=== PATIENT | male | born 1960 | race Caucasian/White ===

== ENCOUNTER 2020-08-25 16:36 | Emergency (ER) | payer OTHER ==
[~2020-08-25] VITALS: Ht 175.3 cm; Wt 92.1 kg
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
--- NOTE | 2020-08-25 17:46 | NUR ---
Patient discharged to home in stable condition. Written and verbal after care instructions given. Patient verbalizes understanding of instruction. Pt ambulatory with a steady gait
--- NOTE | 2020-08-25 17:46 | NUR ---
EMT AT BEDSIDE FOR DRESSING. BACITRACIN APPLIED AND WRAPPED WITH KERLIX
[2020-08-25 17:48] VITALS: BP 164/91
== END 2020-08-25 17:49 | disposition home or self-care (01) ==
LOC: ER 16:50
DX: S00.03XA Contusion of scalp, initial encounter (principal); S00.81XA Abrasion of other part of head, initial encounter; Z98.890 Other specified postprocedural states; Z90.89 Acquired absence of other organs; W18.39XA Other fall on same level, initial encounter; Y93.53 Activity, golf; Y92.39 Other specified sports and athletic area as the place of occurrence of the external cause; Y99.8 Other external cause status
CPT/HCPCS: 70450-TC; A6403